=== PATIENT | female | born 1995 | race Caucasian/White ===

== ENCOUNTER 2024-08-08 08:07 | Inpatient (IN) | payer OTHER ==
--- NOTE | 2024-08-08 08:29 | ED ---
Abdominal Pain HPI - General Source: patient, RN notes reviewed Mode of arrival: ambulatory Limitations: no limitations - History of Present Illness MD Complaint: abdominal pain <Naa Johnson - Last Filed: 08/08/24 18:52> <Nicolle Mendoza - Last Filed: 08/10/24 09:58> - General Chief Complaint: Abdominal Pain Stated Complaint: abd pain Time Seen by Provider: 08/08/24 08:13 - History of Present Illness Initial Comments: Patient 29-year-old female with no known past medical history presenting for about 1 hour of severe RLQ pain. She describes it as constant, stabbing, 10/10 associated with nausea and vomiting with occasional radiation across the entire abdomen. She describes the emesis as reddish in color but is unsure if it is related to the food that she ate last night. She reports that she passed out earlier this morning with LOC but denies hitting her head. Significant other at bedside reports that loss of consciousness was for only about 1 minute. She is not on any blood thinners. Her last menstrual period was last month but she describes it as abnormal compared to usual stating that it lasted about 9 days with heavier flow and spotting. She denies any alcohol or drug use, but reports daily marijuana use. She has no history of prior abdominal surgeries. She denies fever/chills, hematuria, melena/hematochezia. (Naa Johnson) - Related Data Allergies Allergy/AdvReac Type Severity Reaction Status Date / Time No Known Allergies Allergy Verified 08/08/24 12:18 Review of Systems ROS Other: All systems not noted in ROS Statement are negative. <Naa Johnson - Last Filed: 08/08/24 18:52> ROS Other: All systems not noted in ROS Statement are negative. <Nicolle Mendoza - Last Filed: 08/10/24 09:58> ROS Statement: Those systems with pertinent positive or pertinent negative responses have been documented in the HPI. Past Medical History Past Medical History: No Reported History History of Any Multi-Drug Resistant Organisms: None Reported Past Surgical History: Adenoidectomy, Tonsillectomy Past Psychological History: No Psychological Hx Reported Smoking Status: Never smoker Past Alcohol Use History: None Reported Past Drug Use History: None Reported <Naa Johnson - Last Filed: 08/08/24 18:52> General Exam Limitations: no limitations General appearance: alert Head exam: Present: atraumatic Eye exam: Present: normal appearance, EOMI ENT exam: Present: mucous membranes moist, normal external ear exam Respiratory exam: Present: normal lung sounds bilaterally. Absent: respiratory distress, wheezes, rales, rhonchi, accessory muscle use Cardiovascular Exam: Present: regular rate, normal rhythm, normal heart sounds. Absent: systolic murmur, diastolic murmur GI/Abdominal exam: Present: soft, tenderness (Severe RLQ), normal bowel sounds. Absent: distended, rebound Expanded GI/Abdominal exam: Present: psoas sign, Rovsing's sign Extremities exam: Present: normal inspection, full ROM Neurological exam: Present: alert, oriented X3, CN II-XII intact Psychiatric exam: Present: normal affect, normal mood Skin exam: Present: warm, dry, intact <Naa Johnson - Last Filed: 08/08/24 18:52> Course Vital Signs 08/08/24 08/08/24 08:09 12:03 Temperature 97.9 F Pulse Rate 92 Pulse Rate [ 62 Pulse Oximetery ] Respiratory 20 16 Rate Blood Pressure 165/77 Blood Pressure 113/58 [Right Arm] O2 Sat by Pulse 99 98 Oximetry Medical Decision Making - Lab Data Result diagrams: 08/08/24 08:25 08/08/24 08:25 <Naa Johnson - Last Filed: 08/08/24 18:52> - Lab Data Result diagrams: 08/08/24 08:25 08/08/24 08:25 <Nicolle Mendoza - Last Filed: 08/10/24 09:58> - Medical Decision Making Was pt. sent in by a medical professional or institution (, PA, PLATFORM BUILDER, urgent care, hospital, or long term...) When possible be specific @ -No Did you speak to anyone other than the patient for history (EMS, parent, family, police, friend...)? What history was obtained from this source @ -No Did you review nursing and triage notes (agree or disagree)? Why? @ -I reviewed and agree with nursing and triage notes Were old charts reviewed (outside hosp., previous admission, EMS record, old EKG, old radiological studies, urgent care reports/EKG's, long term records)? Report findings @ -No old charts were reviewed Differential Diagnosis? @ -Differential Abdominal Pain Women: Appendicitis, Cholecystitis, diverticulosis, ischemic bowel, pancreatitis, hepatitis, UTI, gastroenteritis, AAA, incarcerated hernia, bowel obstruction, constipation, inflammatory bowel, hepatitis, peptic ulcer disease, splenic infarction, perforated viscus, vulvitis, ovarian torsion, PID, kidney stone, placenta abruption, this is not meant to be an all-inclusive list. EKG interpreted by me (3pts min.). @ -Sinus rhythm, rate 57 bpm, QTc 392 ms, no ST segment changes X-rays interpreted by me (1pt min.). @ -None done CT interpreted by me (1pt min.). @ -None done U/S interpreted by me (1pt. min.). @ -None done What testing was considered but not performed or refused? (CT, X-rays, U/S, labs)? Why? @ -None What meds were considered but not given or refused? Why? @ -None Did you discuss the management of the patient with other professionals (professionals i.e. , PA, PLATFORM BUILDER, lab, RT, psych nurse, social media coordinator, senior clinical sas programmer, teacher, drug abuse resistance education officer, home health care case manager)? Give summary @ -No Was smoking cessation discussed for >3mins.? @ -No Was critical care preformed (if so, how long)? @ -No Were there social determinants of health that impacted care today? How? (Homelessness, low income, unemployed, alcoholism, drug addiction, transportation, low edu. Level, literacy, decrease access to med. care, [place] [facility], rehab)? @ -No Was there de-escalation of care discussed even if they declined (Discuss DNR or withdrawal of care, Hospice)? DNR status @ -No What co-morbidities impacted this encounter? (DM, HTN, Smoking, COPD, CAD, Cancer, CVA, ARF, Chemo, Hep., AIDS, mental health diagnosis, sleep apnea, mor bid obesity)? @ -None Was patient admitted / discharged? Hospital course, mention meds given and rou te, prescriptions, significant lab abnormalities, going to OR and other pertinent info. @ -Patient is a 29-year-old female who presented with acute onset RLQ pain associated with nausea and vomiting and a syncopal episode. A bedside FAST exam was performed and no free fluid was seen. EKG also was performed due to her syncopal episode which showed sinus rhythm, no ST segment changes. Her vital s igns remained stable. CBC, CMP, beta-hCG, and urinalysis were ordered. CBC, CMP, and urinalysis were unremarkable. Beta-hCG was 14,766. Transvaginal ultrasound was ordered which showed correlation for an ectopic associated with elevated beta hCG levels. I spoke with Dr. Huerta whose plan is to take her to the operating room. Patient is admitted [facility]. Undiagnosed new problem with uncertain prognosis? @ -No Drug Therapy requiring intensive monitoring for toxicity (Heparin, Nitro, Insulin, Cardizem)? @ -No Were any procedures done? @ -No Diagnosis/symptom? @ -Ectopic Acute, or Chronic, or Acute on Chronic? @ -Acute Uncomplicated (without systemic symptoms) or Complicated (systemic symptoms)? @ - Side effects of treatment? @ -No Exacerbation, Progression, or Severe Exacerbation? @ -No Poses a threat to life or bodily function? How? (Chest pain, [place], [place], pneumonia, PE, COPD, DKA, ARF, appy, cholecystitis, CVA, Diverticulitis, Homicidal, Suicidal, threat to staff... and all critical care pts) @ -Possible, ectopic (Naa Johnson) I personally saw the patient and performed the critical portion of the service. I discussed the patient care with the resident physician. I directed management, care planning and final disposition of the patient. This includes, but not limited to, review of all lab work, radiological studies, EKG's, consultations, vital signs, and nursing notes. EKG interpreted by me (3pts min.) @Sinus bradycardia, rate 57 bpm intervals within acceptable limits, normal axis, no ST elevation/depression/ischemic changes, no Brugada pattern or delta waves X-Rays interpreted by me (1 pt min.) @None CT interpreted by me ( 1pt min.) @None U/S interpreted by me (1 pt min.) Personally reviewed TV US, complex appearing right adnexal mass noted without evidence of IUP, Radiologist described a complex fluid collection in the left adnexa with a complex masslike area in the right adnexa adjacent to the ovary, interpretation as "if the beta-hCG positive and ectopic needs to be strongly considered with nonsimple fluid collection in the left pelvis and complex 4.4 cm right adnexal mass adjacent to the right. If beta-hCG negative, advise further investigation with contrast-enhanced CT to further evaluate". Personally reviewed US appendix, appendix was not visualized, small amount of free fluid noted, I agree with radiologist interpretation Critical care time of 35 minutes excluding separately billable procedures was spent in conjunction with critical care activities provided by the Resident and Attending simultaneously. I was present during no procedures for all critical portions of the procedure and as immediately available to furnish service during the entire procedure. (Nicolle Mendoza) - Lab Data Lab Results 08/08/24 08/08/24 08/08/24 Range/Units 08:25 08:25 08:25 WBC 11.93 H (4.50-10.00) 10*3/uL RBC 4.69 (4.10-5.20) 10*6/uL Hgb 14.8 (12.0-15.0) g/dL Hct 43.6 (37.2-46.3) % MCV 93.0 (80.0-97.0) fL MCH 31.6 (27.0-32.0) pg MCHC 33.9 (32.0-37.0) g/dL Plt Count 390 (140-440) 10*3/uL MPV 8.9 L (9.5-12.2) fL Immature Gran % (Auto) 0.4 % Neutrophils % 64.7 % Lymphocytes % 24.7 % Monocytes % 6.3 % Eosinophils % 3.2 % Basophils % 0.7 % Immature Gran # 0.05 H (0.00-0.04) 10*3/uL Neutrophils # 7.72 H (1.80-7.70) 10*3/uL Lymphocytes # 2.95 (0.90-5.00) 10*3/uL Monocytes # 0.75 (0.20-1.00) 10*3/uL Eosinophils # 0.38 H (0.04-0.35) 10*3/uL Basophils # 0.08 (0.00-0.10) 10*3/uL PT 9.7 L (10.0-12.5) sec INR 0.8 (<1.2) APTT 25.6 (22.0-30.0) sec Sodium 138 (137-145) mmol/L Potassium 4.5 (3.5-5.1) mmol/L Chloride 105 (98-107) mmol/L Carbon Dioxide 24 (22-30) mmol/L Anion Gap 9 mmol/L BUN 14 (7-17) mg/dL Creatinine 0.79 (0.52-1.04) mg/dL Est GFR (CKD-EPI)AfAm >90 (>60 ml/min/1.73 sqM) Est GFR (CKD-EPI)NonAf >90 (>60 ml/min/1.73 sqM) Glucose 114 H (74-99) mg/dL Plasma Lactic Acid Kimo (0.7-2.0) mmol/L Calcium 9.8 (8.4-10.2) mg/dL Total Bilirubin 0.3 (0.2-1.3) mg/dL AST 22 (14-36) U/L ALT 16 (4-34) U/L Alkaline Phosphatase 78 (38-126) U/L C-Reactive Protein <0.5 (<1.0) mg/dL Total Protein 7.0 (6.3-8.2) g/dL Albumin 4.5 (3.5-5.0) g/dL HCG, Quant 76865.6 mIU/mL Urine Color Urine Appearance (Clear) Urine pH (5.0-8.0) Ur Specific Merrill (1.001-1.035) Urine Protein (Negative) Urine Glucose (UA) (Negative) Urine Ketones (Negative) Urine Blood (Negative) Urine Nitrite (Negative) Urine Bilirubin (Negative) Urine Urobilinogen (<2.0) mg/dL Ur Leukocyte Esterase (Negative) Blood Type Blood Type Confirm Blood Type Recheck Bld Type Recheck Status Antibody Screen Spec Expiration Date 08/08/24 08/08/24 08/08/24 Range/Units 08:25 08:44 09:25 WBC (4.50-10.00) 10*3/uL RBC (4.10-5.20) 10*6/uL Hgb (12.0-15.0) g/dL Hct (37.2-46.3) % MCV (80.0-97.0) fL MCH (27.0-32.0) pg MCHC (32.0-37.0) g/dL Plt Count (140-440) 10*3/uL MPV (9.5-12.2) fL Immature Gran % (Auto) % Neutrophils % % Lymphocytes % % Monocytes % % Eosinophils % % Basophils % % Immature Gran # (0.00-0.04) 10*3/uL Neutrophils # (1.80-7.70) 10*3/uL Lymphocytes # (0.90-5.00) 10*3/uL Monocytes # (0.20-1.00) 10*3/uL Eosinophils # (0.04-0.35) 10*3/uL Basophils # (0.00-0.10) 10*3/uL PT (10.0-12.5) sec INR (<1.2) APTT (22.0-30.0) sec Sodium (137-145) mmol/L Potassium (3.5-5.1) mmol/L Chloride (98-107) mmol/L Carbon Dioxide (22-30) mmol/L Anion Gap mmol/L BUN (7-17) mg/dL Creatinine (0.52-1.04) mg/dL Est GFR (CKD-EPI)AfAm (>60 ml/min/1.73 sqM) Est GFR (CKD-EPI)NonAf (>60 ml/min/1.73 sqM) Glucose (74-99) mg/dL Plasma Lactic Acid Kimo 1.0 (0.7-2.0) mmol/L Calcium (8.4-10.2) mg/dL Total Bilirubin (0.2-1.3) mg/dL AST (14-36) U/L ALT (4-34) U/L Alkaline Phosphatase (38-126) U/L C-Reactive Protein (<1.0) mg/dL Total Protein (6.3-8.2) g/dL Albumin (3.5-5.0) g/dL HCG, Quant mIU/mL Urine Color Urine Appearance (Clear) Urine pH (5.0-8.0) Ur Specific Merrill (1.001-1.035) Urine Protein (Negative) Urine Glucose (UA) (Negative) Urine Ketones (Negative) Urine Blood (Negative) Urine Nitrite (Negative) Urine Bilirubin (Negative) Urine Urobilinogen (<2.0) mg/dL Ur Leukocyte Esterase (Negative) Blood Type O Positive Blood Type Confirm O Positive Blood Type Recheck No Previous Record Bld Type Recheck Status CABO Indicated Antibody Screen NEGATIVE Spec Expiration Date 08/11/2024 - 232408/08/24 Range/Units 09:26 WBC (4.50-10.00) 10*3/uL RBC (4.10-5.20) 10*6/uL Hgb (12.0-15.0) g/dL Hct (37.2-46.3) % MCV (80.0-97.0) fL MCH (27.0-32.0) pg MCHC (32.0-37.0) g/dL Plt Count (140-440) 10*3/uL MPV (9.5-12.2) fL Immature Gran % (Auto) % Neutrophils % % Lymphocytes % % Monocytes % % Eosinophils % % Basophils % % Immature Gran # (0.00-0.04) 10*3/uL Neutrophils # (1.80-7.70) 10*3/uL Lymphocytes # (0.90-5.00) 10*3/uL Monocytes # (0.20-1.00) 10*3/uL Eosinophils # (0.04-0.35) 10*3/uL Basophils # (0.00-0.10) 10*3/uL PT (10.0-12.5) sec INR (<1.2) APTT (22.0-30.0) sec Sodium (137-145) mmol/L Potassium (3.5-5.1) mmol/L Chloride (98-107) mmol/L Carbon Dioxide (22-30) mmol/L Anion Gap mmol/L BUN (7-17) mg/dL Creatinine (0.52-1.04) mg/dL Est GFR (CKD-EPI)AfAm (>60 ml/min/1.73 sqM) Est GFR (CKD-EPI)NonAf (>60 ml/min/1.73 sqM) Glucose (74-99) mg/dL Plasma Lactic Acid Kimo (0.7-2.0) mmol/L Calcium (8.4-10.2) mg/dL Total Bilirubin (0.2-1.3) mg/dL AST (14-36) U/L ALT (4-34) U/L Alkaline Phosphatase (38-126) U/L C-Reactive Protein (<1.0) mg/dL Total Protein (6.3-8.2) g/dL Albumin (3.5-5.0) g/dL HCG, Quant mIU/mL Urine Color Colorless Urine Appearance Clear (Clear) Urine pH 6.0 (5.0-8.0) Ur Specific Merrill 1.011 (1.001-1.035) Urine Protein Negative (Negative) Urine Glucose (UA) Negative (Negative) Urine Ketones Negative (Negative) Urine Blood Negative (Negative) Urine Nitrite Negative (Negative) Urine Bilirubin Negative (Negative) Urine Urobilinogen <2.0 (<2.0) mg/dL Ur Leukocyte Esterase Negative (Negative) Blood Type Blood Type Confirm Blood Type Recheck Bld Type Recheck Status Antibody Screen Spec Expiration Date Disposition Time of Disposition: 10:49 <Naa Johnson - Last Filed: 08/08/24 18:52> <Nicolle Mendoza - Last Filed: 08/10/24 09:58> Clinical Impression: Ectopic Disposition: ADMITTED IP TO THIS [facility] Condition: Stable
[2024-08-08] MEDS: MORPHINE SULFATE 4 MG/ML SYRINGE IVP STA (08:46)
[2024-08-08] MEDS: ONDANSETRON 4 MG/2 ML VIAL IM STA (08:46)
[2024-08-08 08:49] LABS: Basophils # (A) 0.08 10*3/uL (0.00-0.10); Basophils % (A) 0.7 %; Eosinophils # (A) 0.38 10*3/uL (0.04-0.35); Eosinophils % (A) 3.2 %; HCT 43.6 % (37.2-46.3); HGB 14.8 g/dL (12.0-15.0); Lymphocytes # (A) 2.95 10*3/uL (0.90-5.00); Lymphocytes % (A) 24.7 %; MCH 31.6 pg (27.0-32.0); MCHC 33.9 g/dL (32.0-37.0); Mean Platelet Volume 8.9 fL (9.5-12.2); Monocytes # (A) 0.75 10*3/uL (0.20-1.00); Monocytes % (A) 6.3 %; Neutrophils # (A) 7.72 10*3/uL (1.80-7.70); Neutrophils % (A) 64.7 %; Platelet Count 390 10*3/uL (140-440); RBC 4.69 10*6/uL (4.10-5.20); RDW 12.6 % (11.5-14.5); WBC 11.93 10*3/uL (4.50-10.00)
[2024-08-08 09:11] LABS: INR 0.8 (<1.2); Partial Thromboplastin Time 25.6 sec (22.0-30.0); Prothrombin Time 9.7 sec (10.0-12.5)
[2024-08-08 09:21] LABS: African American GFR (CKD) >90 (>60 ml/min/1.73 sqM); Anion Gap 9 mmol/L; Blood Urea Nitrogen 14 mg/dL (7-17); Calcium 9.8 mg/dL (8.4-10.2); Carbon Dioxide 24 mmol/L (22-30); Chloride 105 mmol/L (98-107); Glucose 114 mg/dL (74-99); Non-African American GFR(CKD) >90 (>60 ml/min/1.73 sqM); Potassium 4.5 mmol/L (3.5-5.1); Sodium 138 mmol/L (137-145)
[2024-08-08 09:41] LABS: Appearance,Urine Clear (Clear); Bilirubin,Urine Negative (Negative); Blood,Urine Negative (Negative); Color,Urine Colorless; Glucose,Urine (UA) Negative (Negative); Ketones,Urine Negative (Negative); Leukocyte Esterase,Urine Negative (Negative); Nitrite,Urine Negative (Negative); Protein,Urine Negative (Negative); Specific Gravity,Urine 1.011 (1.001-1.035); Urobilinogen,Urine <2.0 mg/dL (<2.0)
--- NOTE | 2024-08-08 10:30 | US ---
EXAMINATION TYPE: US abdomen APPY DATE OF EXAM: 08/08/2024 COMPARISON: NONE CLINICAL INDICATION: Female, 29 years old with history of sudden onset RLQ pain; RLQ pain. vomiting TECHNIQUE: Multiple sonographic images of the right lower quadrant were obtained with graded compress ion with grayscale and color Doppler imaging. FINDINGS: APPENDIX Is the appendix seen in its entirety from the proximal cecum to distal end: appendix not seen with c ertainty Is there inflammatory changes or free fluid present: free fluid RLQ. lymph nodes RLQ, largest = 1.3 x 0.6 x 1.4cm IMPRESSION: Nonvisualization of the appendix in the right lower quadrant. This does not exclude diagnosis of acut e appendicitis. [facility], , 08/08/2024 10:28 AM
--- NOTE | 2024-08-08 10:35 | US ---
EXAMINATION TYPE: US transvaginal DATE OF EXAM: 08/08/2024 COMPARISON: NONE CLINICAL INDICATION: Female, 29 years old with history of sudden onset RLQ pain; Right pelvic pain TECHNIQUE: Transvaginal (TV). Transvaginal grayscale sonographic images of the pelvis were acquired. Doppler imaging: Color Doppler Images were obtained. Spectral doppler images were obtained. FINDINGS: Date of LMP: July 2024, irregular EXAM MEASUREMENTS: Uterus: 6.6 x 3.6 x 4.5 cm Endometrial Stripe: 0.6 cm Right Ovary: 3.0 x 2.4 x 1.4 cm Left Ovary: 3.3 x 2.4 x 2.0 cm HcG pending 1. Uterus: Anteverted Nabothian cysts 2. Endometrium: calcifications noted 3. Right Ovary: follicles 4. Left Ovary: follicles Spectral, color and waveform doppler imaging shows good arterial and venous flow within the ovaries . 5. Bilateral Adnexa: complex fluid collection left adnexa. complex mass like area right adnexa adjac ent to ovary = 5.3 x 3.0 x 4.4cm 6. Posterior cul-de-sac: appears wnl IMPRESSION: If the Beta-hCG is positive then an ectopic needs to be strongly considered wit h nonsimple fluid collection in the left pelvis and complex 4.4 cm right adnexal mass adjacent to rig ht ovary. If the beta-hCG is negative, advise further investigation with contrast-enhanced CT to furt her evaluate. O-RADS 2021 [email or web address] [facility], , 08/08/2024 10:33 AM
[2024-08-08 10:38] LABS: HCG,Quantitative Serum 14766.6 mIU/mL
[2024-08-08 10:49] LABS: ALT 16 U/L (4-34); AST 22 U/L (14-36); Albumin 4.5 g/dL (3.5-5.0); Alkaline Phosphatase 78 U/L (38-126); C Reactive Protein <0.5 mg/dL (<1.0); Total Bilirubin 0.3 mg/dL (0.2-1.3)
[2024-08-08] MEDS: HYDROmorphone 1 MG/ML 1 ML SYRINGE IVP STA (11:15)
--- NOTE | 2024-08-08 11:33 | P.HPOB ---
History of Present Illness H&P Date: 08/08/24 Chief Complaint: Ectopic This is a 29-year-old G1, P0 that was unaware she was until today. Patient states she was at work and noted right lower quadrant pain patient then presented to the emergency department. Ultrasound was performed revealing a 4 x 5 cm complex adnexal mass in the right adnexa. Quantitative beta-hCG was noted to be 14,766. Patient denies bleeding. Last menstrual period mid July lasting 8 to 9 days moderate flow with spotting. Review of Systems Constitutional: Denies chills, Denies fatigue, Denies fever Ears, nose, mouth and throat: Reports headache Cardiovascular: Denies leg edema Gastrointestinal: Denies constipation, Denies diarrhea, Denies nausea, Denies vomiting Genitourinary: Reports Past Medical History Past Medical History: No Reported History History of Any Multi-Drug Resistant Organisms: None Reported Past Surgical History: Adenoidectomy, Tonsillectomy Past Psychological History: No Psychological Hx Reported Smoking Status: Never smoker Past Alcohol Use History: None Reported Past Drug Use History: None Reported Medications and Allergies Allergies Allergy/AdvReac Type Severity Reaction Status Date / Time No Known Allergies Allergy Verified 08/08/24 08:12 Exam Osteopathic Statement: *. No significant issues noted on an osteopathic structural exam other than those noted in the History and Physical/Consult. Vital Signs Temp Pulse Resp BP Pulse Ox 08/08/24 08:09 97.9 F 92 20 165/77 99 Intake and Output 08/07/24 08/08/24 08/08/24 22:59 06:59 14:59 Other: Weight 63.503 kg Targeted physical exam is performed this date in general this is a well- nourished well-developed female side lying in the emergency room bed. Abdomen is tender no rebound or guarding tenderness is localized to the right lower quadrant. Some tympany is noted upon examination. Results Result Diagrams: 08/08/24 08:25 08/08/24 08:25 Abnormal Lab Results - Last 24 Hours (Table) 08/08/24 08/08/24 08/08/24 Range/Units 08:25 08:25 08:25 WBC 11.93 H (4.50-10.00) 10*3/uL MPV 8.9 L (9.5-12.2) fL Immature Gran # 0.05 H (0.00-0.04) 10*3/uL Neutrophils # 7.72 H (1.80-7.70) 10*3/uL Eosinophils # 0.38 H (0.04-0.35) 10*3/uL PT 9.7 L (10.0-12.5) sec Glucose 114 H (74-99) mg/dL Assessment and Plan (1) Ectopic Current Visit: Yes Status: Acute Code(s): O00.90 - UNSPECIFIED ECTOPIC WITHOUT INTRAUTERINE SNOMED Code(s): 08384233 Plan: Patient and are counseled on findings of ultrasound and quantitative beta-hCG. Need for surgery given these findings are discussed. Operative laparoscopy with right salpingectomy is discussed in detail. Informed consent is obtained. Risks are reviewed including but not limited to infection, bleeding, damage to bladder, bowel, ureteric injury. Loss of fallopian tube and fertility implications are discussed with patient. Questions are answered. Anesthesia is notified and SCREW MACHINE SET UP OPERATOR is at the bedside.
[2024-08-08] MEDS: LACTATED RINGERS 1,000 ML BAG IV STA (12:03)
[2024-08-08] MEDS: IV FLUID CONTINUATION 1,000 ML IV ONE ×2 (12:03→13:55)
[2024-08-08] MEDS ORDERED: LIDOCAINE 4% LTA KIT (4 ML) TOPICAL ONE (12:20)
[2024-08-08] MEDS ORDERED: KETOROLAC 15 MG/ML 1 ML VIAL ONE (12:20)
[2024-08-08] MEDS ORDERED: fentaNYL (PF) 50 MCG/ML 2 ML AMP ONE (12:20)
[2024-08-08] MEDS ORDERED: LIDOCAINE 1% INJ 10MG/ML (20 ML MDV) ONE (12:20)
[2024-08-08] MEDS ORDERED: PROPOFOL 10 MG/ML 20 ML VIAL IV ONE (12:20)
[2024-08-08] MEDS ORDERED: MIDAZOLAM 2 MG/2 ML VIAL ONE (12:20)
[2024-08-08] MEDS ORDERED: ROCURONIUM 10 MG/ML (5 ML VIAL) IV ONE (12:20)
[2024-08-08] MEDS ORDERED: SUCCINYLCHOLINE CHLORIDE 200 MG/10 ML VIAL IV ONE (12:20)
[2024-08-08] MEDS: BUPIVACAINE (PF) 0.25% 30 ML VIAL SQ ONE ×2 (12:48→13:03)
[2024-08-08] MEDS ORDERED: ACETAMINOPHEN TAB 325 MG TAB PO PRN (13:11)
[2024-08-08] MEDS ORDERED: ONDANSETRON 4 MG/2 ML VIAL IVP PRN (13:11)
[2024-08-08] MEDS ORDERED: SIMETHICONE 80 MG CHEWABLE PO PRN (13:11)
[2024-08-08 13:20] VITALS: TEMP 96.8
--- NOTE | 2024-08-08 13:20 | P.OP ---
Date of Procedure: 08/08/24 Preoperative Diagnosis: Ectopic Postoperative Diagnosis: Same, plus pelvic adhesions, hemoperitoneum Procedure(s) Performed: Operative laparoscopy with right salpingectomy, evacuation of hemoperitoneum Anesthesia: GETA Surgeon: Aleja Huerta Estimated Blood Loss (ml): 10 IV fluids (ml): 600 Urine output (ml): 100 (Via red rubber catheter) Pathology: other (Right adnexa) Condition: stable Disposition: observation Indications for Procedure: Right ectopic , right lower quadrant pain that began earlier this morning severe in nature necessitating morphine and Dilaudid Operative Findings: Dilated right fallopian tube with pelvic adhesions, left fallopian tube noted to be adherent to the posterior uterus, right ovary adherent to the right pelvic sidewall Description of Procedure: Patient was taken to the operating suite after informed consent was obtained. General anesthesia was obtained by the anesthesia department without difficulty. Patient was prepped and draped in normal sterile fashion the dorsolithotomy position. A red rubber catheter was used to drain the bladder of clear yellow urine. A speculum was placed and the anterior lip of the cervix was grasped with a single-tooth tenaculum., an acorn uterine manipulator was advanced into the uterus as a means to manipulate the uterus throughout the procedure. Attention was turned to the patient's abdomen where in the umbilical fold a small skin incision is made. A Veress needle is placed through the skin incision and toward the peritoneum. Once the Veress needle was deemed to be in the proper position with a drop of CO2 pressure with the insufflation of CO2 gas, CO2 insufflation was allowed to occur. The additional port sites were then placed at 10 cm lateral and 3 cm inferior to the midline port the right mid abdomen is a 5 mm port in the left mid abdomen was a 10 mm port the fallopian tube was then elevated, and the LigaSure was then used to transect the right fallopian tube to the level of the ectopic . This was placed in Endo Catch bag and removed from the abdomen. Hemostasis was appreciated after removal. Pelvis was then irrigated copiously filmy pelvic adhesions were appreciated. All instruments were removed from the patient's abdomen at this time. Skin incisions were closed with 4-0 Vicryl in a subcuticular fashion. Steri-Strips and sterile dressings were applied. Lidocaine was injected into the incision sites prior to closure. Attention then turned to the patient's vaginal vault right upper catheter was used without difficulty, acorn uterine balloon was removed along with the single-tooth tenaculum. Hemostasis was appreciated.
[2024-08-08] MEDS ORDERED: IBUPROFEN IV 800 MG in SODIUM CHLORIDE 0.9% 250 ML IV ONE (13:22)
[2024-08-08] MEDS ORDERED: HYDROmorphone 0.5 MG/0.5 ML SYRINGE IVP PRN (13:22)
[2024-08-08] MEDS: ONDANSETRON 4 MG/2 ML VIAL IVP STA (13:53)
[2024-08-08] MEDS: LACTATED RINGERS 1,000 ML IV SCH (13:55)
[2024-08-08] MEDS: SENNOSIDES-DOCUSATE SODIUM 1 EACH TAB PO SCH (14:40)
[2024-08-08] MEDS: ACETAMINOPHEN IV (For NPO) 1,000 MG in EMPTY BAG 1 BAG IVPB STA (14:52)
[2024-08-08 16:39] VITALS: RESP 18
[2024-08-08 18:01] VITALS: BP 115/71; PULSE 50
[2024-08-08] MEDS ORDERED: ACETAMINOPHEN TAB 500 MG TAB PO SCH (22:00)
== END 2024-08-08 18:30 | disposition home or self-care (01) | DRG 817 ==
LOC: EC 08:07 → 4FBP 11:36
PROVIDERS: ADMIT Obstetrics & Gynecology Obstetrics; ATTEND Obstetrics & Gynecology Obstetrics
PROC: 0UT54ZZ Resection of Right Fallopian Tube, Percutaneous Endoscopic Approach (ICD-10-PCS; principal; 2024-08-08 12:10)
PROC: 10T24ZZ Resection of Products of Conception, Ectopic, Percutaneous Endoscopic Approach (ICD-10-PCS; principal; 2024-08-08 12:10)
DX: O00.101 Right tubal pregnancy without intrauterine pregnancy (principal); K66.1 Hemoperitoneum; N73.6 Female pelvic peritoneal adhesions (postinfective)
CPT/HCPCS: 36415; 76705; 76830; 80053; 81003; 83605; 84702; 85025; 85610; 85730; 86140; 86850; 86900; 86901; 88305; 93005; 93975; 96372; 96374; 96375; 99285

== ENCOUNTER 2024-08-11 11:46 | Emergency (ER) | payer SELFPAY ==
[2024-08-11 12:55] LABS: Basophils # (A) 0.06 10*3/uL (0.00-0.10); Basophils % (A) 0.6 %; Eosinophils # (A) 0.26 10*3/uL (0.04-0.35); Eosinophils % (A) 2.6 %; HCT 39.6 % (37.2-46.3); HGB 13.6 g/dL (12.0-15.0); Lymphocytes # (A) 3.15 10*3/uL (0.90-5.00); Lymphocytes % (A) 31.6 %; MCH 31.9 pg (27.0-32.0); MCHC 34.3 g/dL (32.0-37.0); MCV 92.7 fL (80.0-97.0); Mean Platelet Volume 9.2 fL (9.5-12.2); Neutrophils # (A) 5.87 10*3/uL (1.80-7.70); Neutrophils % (A) 58.8 %; Platelet Count 365 10*3/uL (140-440); RBC 4.27 10*6/uL (4.10-5.20); RDW 12.4 % (11.5-14.5); WBC 9.98 10*3/uL (4.50-10.00)
--- NOTE | 2024-08-11 13:00 | ED ---
Female Urogenital HPI - General Chief complaint: Vaginal Bleeding Stated complaint: vaginal bleeding, abd pain Time Seen by Provider: 08/11/24 11:55 Source: patient, RN notes reviewed, old records reviewed Mode of arrival: wheelchair Limitations: no limitations - History of Present Illness Initial comments: 29-year-old female presenting to the ER for evaluation of vaginal bleeding. On 08 08 24 patient was seen and admitted for treatment of an ectopic . Patient underwent salpingectomy and ectopic removal and was discharged on 08 09 24. Patient reports since being discharged she has been taking [id number] ibuprofen and Tylenol for pain control with little relief. This morning upon waking she noticed a large amount of blood and states "I was covered in blood" she went to the bathroom to clean up and decided to lay back down. She woke up shortly after and was covered in blood again this happened in total 3 times.she also was endorsing a right lower quadrant abdominal cramping discomfort. There is no radiation of this pain. She did attempt to reach out to [employer] and was instructed to come to the ER. Follow-up appointment with is tomrrow. She denies any fevers, chills, nausea, vomiting or other complaints. No blood thinner use. - Related Data Allergies Allergy/AdvReac Type Severity Reaction Status Date / Time No Known Allergies Allergy Verified 08/11/24 11:50 Review of Systems ROS Statement: Those systems with pertinent positive or pertinent negative responses have been documented in the HPI. ROS Other: All systems not noted in ROS Statement are negative. Past Medical History Past Medical History: No Reported History History of Any Multi-Drug Resistant Organisms: None Reported Past Surgical History: Adenoidectomy, Tonsillectomy Additional Past Surgical History / Comment(s): ear tubes, ear reconstruction on left side from "pressure build up" Past Anesthesia/Blood Transfusion Reactions: No Reported Reaction Past Psychological History: No Psychological Hx Reported Smoking Status: Never smoker Past Alcohol Use History: None Reported Past Drug Use History: None Reported General Exam Limitations: no limitations General appearance: alert, in no apparent distress Respiratory exam: Present: normal lung sounds bilaterally. Absent: respiratory distress, wheezes, rales, rhonchi, stridor Cardiovascular Exam: Present: regular rate, normal rhythm, normal heart sounds. Absent: systolic murmur, diastolic murmur, rubs, gallop, clicks GI/Abdominal exam: Present: soft, tenderness (RLQ), normal bowel sounds, other (3 laparoscopic surgical incisions noted with minimal surrounding bruising. There is no surrounding erythema, purulent drainage or edema noted to wounds.) External exam: Present: normal external exam Speculum exam: Present: vaginal bleeding (Mild cervical os closed.) Neurological exam: Present: alert, oriented X3, CN II-XII intact Skin exam: Present: warm, dry, intact, normal color. Absent: rash Course Vital Signs 08/11/24 08/11/24 11:47 15:07 Temperature 97.7 F 98.1 F Pulse Rate 74 76 Respiratory 18 20 Rate Blood Pressure 127/76 117/72 O2 Sat by Pulse 98 100 Oximetry - Reevaluation(s) Reevaluation #1: Case discussed with, [employer], Dr. Huerta. She advised on close outpatient follow- up as this may be normal due to recent ectopic . Medical Decision Making - Medical Decision Making Was pt. sent in by a medical professional or institution (, PA, [employer], urgent care, hospital, or correction...) When possible be specific @ -No Did you speak to anyone other than the patient for history (EMS, parent, family, police, friend...)? What history was obtained from this source @ -Patient Sister and mother, at bedside, aiding in HPI and past medical history. Did you review nursing and triage notes (agree or disagree)? Why? @ -I reviewed and agree with nursing and triage notes Were old charts reviewed (outside hosp., previous admission, EMS record, old EKG, old radiological studies, urgent care reports/EKG's, correction records)? Report findings @ -ER visit and admission from 08 08 24 reviewed. Patient seen for abdominal pain and diagnosed with an ectopic . Patient ultimately went to the OR to have ectopic removal and salpingectomy. Patient following up with Dr. Huerta Differential Diagnosis (chest pain, altered mental status, abdominal pain women, abdominal pain men, vaginal bleeding, weakness, fever, dyspnea, syncope, headache, dizziness, GI bleed, back pain, seizure, CVA, palpatations, mental health, musculoskeletal)? @ -Differential Vaginal Bleeding:Spontaneous , threatened , molar , ectopic , bloody show, incompetent cervix, abruptioplacenta, placenta previa, uterine rupture, dysfunctional uterine bleeding, hemorrhage, uterine fibroids, this is not meant to be an all-inclusive list. EKG interpreted by me (3pts min.). @ -None done X-rays interpreted by me (1pt min.). @ -None done CT interpreted by me (1pt min.). @ -CT abdomen pelvis showing small amount of free fluid within the pelvis without pelvic abscess or adenopathy. No other significant abnormality. U/S interpreted by me (1pt. min.). @ -None done What testing was considered but not performed or refused? (CT, X-rays, U/S, labs)? Why? @ -None What meds were considered but not given or refused? Why? @ -Rhogam not indicated as patient's blood type is O+ Did you discuss the management of the patient with other professionals (professionals i.e. DrKris, PA, [employer]TAIN, lab, RT, psych nurse, social services assistant, camp attendant, teacher, code enforcement officer, case packer)? Give summary @ -Yes, case thoroughly discussed including laboratory studies, urinalysis and CT abdomen pelvis with [employer], Dr. Huerta, who advised on close outpatient follow-up as scheduled tomorrow. She reports this is normal after ectopic removal as uterine lining needs to be shed as it was preparing for . Was smoking cessation discussed for >3mins.? @ -No Was critical care preformed (if so, how long)? @ -No Were there social determinants of health that impacted care today? How? (Homelessness, low income, unemployed, alcoholism, drug addiction, transportation, low edu. Level, literacy, decrease access to med. care, [facility], rehab)? @ -No Was there de-escalation of care discussed even if they declined (Discuss DNR or withdrawal of care, Hospice)? DNR status @ -No What co-morbidities impacted this encounter? (DM, HTN, Smoking, COPD, CAD, Cancer, CVA, ARF, Chemo, Hep., AIDS, mental health diagnosis, sleep apnea, morbid obesity)? @ -Recent ectopic Was patient admitted / discharged? Hospital course, mention meds given and route, prescriptions, significant lab abnormalities, going to OR and other pertinent info. @ -Discharge. 29-year-old female presenting to the ER for evaluation of vaginal bleeding status post ectopic and right salpingectomy on 08/08/24. Vital signs stable. Upon my evaluation, there is focal right lower quadrant abdominal tenderness without rebound or guarding. 3 laparoscopic surgical incision noted. No evidence of infection. Pelvic exam performed and chaperoned by Josse TERJO with minimal vaginal bleeding cervical os closed. Laboratory studies obtained in the ER remarkable for stable hemoglobin 13.6. Serum hCG 1016.1 this is significantly decreased 14, 766 on 08/08/24. Urinalysis is hemorrhagic with small blood likely contaminated from vaginal bleeding. Blood type O+, rhogam not indicated.Given recent surgical intervention, CT abdomen pelvis performed showing a small amount of free fluid in the pelvis without pelvic abscess or adenopathy. Laboratory studies and CT findings were discussed with Dr. Hureta, [employer]. As patient is stable with stable hemoglobin, vital signs and decrease in hCG she can follow-up as scheduled tomorrow in office. Patient received symptomatic control with p.o. [place] in the emergency department, with improvement. Upon reevaluation, patient resting comfortably on stretcher no signs of acute distress. Results discussed with patient, all questions answered. I advised patient to follow-up closely with Dr. Deanna santana as scheduled. Patient be discharged with a Tylenol 3 starter pack for outpatient pain management. Return parameters discussed. Patient verbally expressed understanding and agreement with care plan. Case discussed with ED attending, Dr. Rao. Undiagnosed new problem with uncertain prognosis? @ -No Drug Therapy requiring intensive monitoring for toxicity (Heparin, Nitro, Insu jessica, Cardizem)? @ -No Were any procedures done? @ -No Diagnosis/symptom? @ -Vaginal bleeding/status post ectopic with right salpingectomy Acute, or Chronic, or Acute on Chronic? @ -Acute Uncomplicated (without systemic symptoms) or Complicated (systemic symptoms)? @ -Uncomplicated Side effects of treatment? @ -No Exacerbation, Progression, or Severe Exacerbation? @ -No Poses a threat to life or bodily function? How? (Chest pain, [place], MA, pneumonia, PE, COPD, DKA, ARF, appy, cholecystitis, CVA, Diverticulitis, Homicidal, Suicidal, threat to staff... and all critical care pts) @ -Low at this time - Lab Data Result diagrams: 08/11/24 12:44 08/11/24 12:44 Lab Results 08/11/24 08/11/24 08/11/24 Range/Units 12:43 12:44 12:44 WBC 9.98 (4.50-10.00) 10*3/uL RBC 4.27 (4.10-5.20) 10*6/uL Hgb 13.6 (12.0-15.0) g/dL Hct 39.6 (37.2-46.3) % MCV 92.7 (80.0-97.0) fL MCH 31.9 (27.0-32.0) pg MCHC 34.3 (32.0-37.0) g/dL Plt Count 365 (140-440) 10*3/uL MPV 9.2 L (9.5-12.2) fL Immature Gran % (Auto) 0.4 % Neutrophils % 58.8 % Lymphocytes % 31.6 % Monocytes % 6.0 % Eosinophils % 2.6 % Basophils % 0.6 % Immature Gran # 0.04 (0.00-0.04) 10*3/uL Neutrophils # 5.87 (1.80-7.70) 10*3/uL Lymphocytes # 3.15 (0.90-5.00) 10*3/uL Monocytes # 0.60 (0.20-1.00) 10*3/uL Eosinophils # 0.26 (0.04-0.35) 10*3/uL Basophils # 0.06 (0.00-0.10) 10*3/uL Sodium 141 (137-145) mmol/L Potassium 4.0 (3.5-5.1) mmol/L Chloride 109 H (98-107) mmol/L Carbon Dioxide 25 (22-30) mmol/L Anion Gap 7 mmol/L BUN 12 (7-17) mg/dL Creatinine 0.77 (0.52-1.04) mg/dL Est GFR (CKD-EPI)AfAm >90 (>60 ml/min/1.73 sqM) Est GFR (CKD-EPI)NonAf >90 (>60 ml/min/1.73 sqM) Glucose 84 (74-99) mg/dL Calcium 9.4 (8.4-10.2) mg/dL Total Bilirubin 0.6 (0.2-1.3) mg/dL AST 23 (14-36) U/L ALT 16 (4-34) U/L Alkaline Phosphatase 67 (38-126) U/L Total Protein 6.4 (6.3-8.2) g/dL Albumin 3.9 (3.5-5.0) g/dL HCG, Quant 1016.1 mIU/mL Urine Color Urine Appearance (Clear) Urine pH (5.0-8.0) Ur Specific Delta (1.001-1.035) Urine Protein (Negative) Urine Glucose (UA) (Negative) Urine Ketones (Negative) Urine Blood (Negative) Urine Nitrite (Negative) Urine Bilirubin (Negative) Urine Urobilinogen (<2.0) mg/dL Ur Leukocyte Esterase (Negative) Urine RBC (0-5) /hpf Urine WBC (0-5) /hpf Ur Squamous Epith Cells (0-4) /hpf Urine Mucus (None) /hpf Blood Type O Positive Blood Type Recheck O Pos Bld Type Recheck Status No Antibody Screen NEGATIVE Spec Expiration Date 08/14/2024 - 234208/11/24 Range/Units 13:13 WBC (4.50-10.00) 10*3/uL RBC (4.10-5.20) 10*6/uL Hgb (12.0-15.0) g/dL Hct (37.2-46.3) % MCV (80.0-97.0) fL MCH (27.0-32.0) pg MCHC (32.0-37.0) g/dL Plt Count (140-440) 10*3/uL MPV (9.5-12.2) fL Immature Gran % (Auto) % Neutrophils % % Lymphocytes % % Monocytes % % Eosinophils % % Basophils % % Immature Gran # (0.00-0.04) 10*3/uL Neutrophils # (1.80-7.70) 10*3/uL Lymphocytes # (0.90-5.00) 10*3/uL Monocytes # (0.20-1.00) 10*3/uL Eosinophils # (0.04-0.35) 10*3/uL Basophils # (0.00-0.10) 10*3/uL Sodium (137-145) mmol/L Potassium (3.5-5.1) mmol/L Chloride (98-107) mmol/L Carbon Dioxide (22-30) mmol/L Anion Gap mmol/L BUN (7-17) mg/dL Creatinine (0.52-1.04) mg/dL Est GFR (CKD-EPI)AfAm (>60 ml/min/1.73 sqM) Est GFR (CKD-EPI)NonAf (>60 ml/min/1.73 sqM) Glucose (74-99) mg/dL Calcium (8.4-10.2) mg/dL Total Bilirubin (0.2-1.3) mg/dL AST (14-36) U/L ALT (4-34) U/L Alkaline Phosphatase (38-126) U/L Total Protein (6.3-8.2) g/dL Albumin (3.5-5.0) g/dL HCG, Quant mIU/mL Urine Color Yellow Urine Appearance Clear (Clear) Urine pH 6.0 (5.0-8.0) Ur Specific Delta 1.029 (1.001-1.035) Urine Protein Negative (Negative) Urine Glucose (UA) Negative (Negative) Urine Ketones Negative (Negative) Urine Blood Small H (Negative) Urine Nitrite Negative (Negative) Urine Bilirubin Negative (Negative) Urine Urobilinogen <2.0 (<2.0) mg/dL Ur Leukocyte Esterase Negative (Negative) Urine RBC 1 (0-5) /hpf Urine WBC 1 (0-5) /hpf Ur Squamous Epith Cells 1 (0-4) /hpf Urine Mucus Few H (None) /hpf Blood Type Blood Type Recheck Bld Type Recheck Status Antibody Screen Spec Expiration Date - Radiology Data Radiology results: report reviewed, image reviewed Disposition Clinical Impression: Postoperative vaginal bleeding Disposition: HOME SELF-CARE Condition: Stable Additional Instructions: Follow-up with Dr. Huerta tomorrow as scheduled. You may take [id number] ibuprofen and Tylenol for pain control. You have been discharged with a Tylenol 3 starter pack do not take [id number] Tylenol while taking Tylenol 3's. Return to the ER for any new or worsening symptoms. Is patient prescribed a controlled substance at d/c from ED?: No Referrals: None,Stated [Primary Care Provider] - 1-2 days Aleja Huerta DO [Doctor of Osteopathic Medicine] - 1-2 days Time of Disposition: 14:42
[2024-08-11 13:07] LABS: ALT 16 U/L (4-34); AST 23 U/L (14-36); African American GFR (CKD) >90 (>60 ml/min/1.73 sqM); Albumin 3.9 g/dL (3.5-5.0); Alkaline Phosphatase 67 U/L (38-126); Anion Gap 7 mmol/L; Blood Urea Nitrogen 12 mg/dL (7-17); Calcium 9.4 mg/dL (8.4-10.2); Carbon Dioxide 25 mmol/L (22-30); Chloride 109 mmol/L (98-107); Glucose 84 mg/dL (74-99); Non-African American GFR(CKD) >90 (>60 ml/min/1.73 sqM); Sodium 141 mmol/L (137-145); Total Bilirubin 0.6 mg/dL (0.2-1.3); Total Protein 6.4 g/dL (6.3-8.2)
[2024-08-11 13:23] LABS: HCG,Quantitative Serum 1016.1 mIU/mL
[2024-08-11 13:33] LABS: Appearance,Urine Clear (Clear); Bilirubin,Urine Negative (Negative); Blood,Urine Small (Negative); Color,Urine Yellow; Glucose,Urine (UA) Negative (Negative); Ketones,Urine Negative (Negative); Leukocyte Esterase,Urine Negative (Negative); Mucus,Urine Few /hpf; Nitrite,Urine Negative (Negative); Protein,Urine Negative (Negative); RBC,Urine 1 /hpf (0-5); Specific Gravity,Urine 1.029 (1.001-1.035); Squamous Epithelial Cell,Urine 1 /hpf (0-4); Urobilinogen,Urine <2.0 mg/dL (<2.0); WBC,Urine 1 /hpf (0-5)
--- NOTE | 2024-08-11 14:22 | CT ---
EXAMINATION TYPE: CT abdomen pelvis w con DATE OF EXAM: 08/11/2024 COMPARISON: None CLINICAL INDICATION: Female, 29 years old with history of vag bleed/rlq abd pain s/p salpingectomy; P HH, Vag bleeding, RLQ abd pain s/p salpingectomy. TECHNIQUE: Performed without Oral Contrast and with IV Contrast, patient injected with 100 mL of Isovue 300. CT DLP: 678.[address] CTDI: mGy Automated exposure control for dose reduction was used. FINDINGS: There is mild atelectasis in the lung bases. The gallbladder is normal without distention, wall thickening, pericholecystic fluid or gallstones. T here is no biliary ductal dilatation. There is no focal mass or organomegaly involving the liver, pancreas, spleen or adrenal glands. There is no solid renal mass or hydronephrosis and there is homogeneous contrast enhancement of the r enal parenchyma. The caliber the abdominal aorta is normal is no retroperitoneal adenopathy or hemorr peter. The bowel loops are normal in caliber and there is no evidence of dilatation or obstruction. No infla mmatory changes are identified in the bowel wall or mesentery. There is a small amount of free fluid within the pelvis. There is no pelvic abscess or adenopathy. The osseous structures and soft tissues are intact. IMPRESSION: Small amount of free fluid within the pelvis without pelvic abscess or adenopathy. No other significa nt abnormality seen within the abdomen or pelvis. [facility], , 08/11/2024 2:20 PM
[2024-08-11] MEDS: HYDROcodone/APAP 5-325MG 1 EACH TAB PO STA (15:02)
[2024-08-11] MEDS: ACET/COD 300 MG/30 MG STARTER PACK 6 TAB BTL PO STA (15:02)
[2024-08-11 15:08] VITALS: BP 117/72; PULSE 76; RESP 20; TEMP 98.1
== END 2024-08-11 15:53 | disposition home or self-care (01) ==
LOC: EC 11:46
DX: N99.820 Postprocedural hemorrhage of a genitourinary system organ or structure following a genitourinary system procedure (principal)
CPT/HCPCS: 36415; 86900; 86901; 80053; 85025; 86850; 81001; 84702; 74177; 99284; Q9967